=== PATIENT | male | born 1970 | race Caucasian/White ===

== ENCOUNTER 2017-01-27 19:29 | Emergency (ER) | payer OTHER ==
[2017-01-27 19:49] VITALS: TEMP 97.7
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
[2017-01-27 20:32] VITALS: BP 103/73; PULSE 83; RESP 18; O2SAT 90
== END 2017-01-27 20:43 | disposition home or self-care (01) ==
LOC: EDUNIT#
DX: S00.81XA Abrasion of other part of head, initial encounter (principal); F10.99 Alcohol use, unspecified with unspecified alcohol-induced disorder; W18.39XA Other fall on same level, initial encounter

== ENCOUNTER 2017-05-26 19:19 | Inpatient (IN) | payer OTHER ==
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
[2017-05-26] MEDS ORDERED: HYDROmorphONE/DILAUDID 1 MG/ML INJ ONE (19:41)
[2017-05-26] MEDS ORDERED: HYDROmorphONE/DILAUDID 1 MG/ML INJ IVP ONE ×2 (19:55→20:54)
[2017-05-26 20:22] LABS: PLATELET COUNT 144 10^3/uL (150-400)
[2017-05-26 20:43] LABS: INR 0.99 (0.83-1.16); PROTIME(PATIENT) 13.3 SEC (12.0-15.0)
[2017-05-26] MEDS ORDERED: ACETAMINOPHEN 325 MG TAB PO PRN (22:19)
[2017-05-26] MEDS ORDERED: ONDANSETRON DISINTEGRATING 4 MG TAB PO PRN (22:19)
[2017-05-26] MEDS ORDERED: ONDANSETRON 4 MG/2 ML VIAL IVP PRN (22:19)
[2017-05-26] MEDS ORDERED: NS 1,000 ML IV SCH (22:30)
--- NOTE | 2017-05-26 22:30 | SOAPPROG ---
SOAP Progress Note Assessment/Plan: Assessment/Plan: Left femoral neck fracture, displaced -Cont NWB of LLE, pt will remain on bedrest until surgery tomorrow -Planned L hip hemiarthroplasty on 05/27/2017, pending medicine clearance for surgery -Cont current pain regimen as tolerated -Pt will be NPO after midnight for surgery on 05/27/2017 -Signed informed consent obtained 05/26/17 22:28 Subjective: Consult note dictated Objective: Vital Signs Temp Pulse Resp BP Pulse Ox 36.8 C 78 17 143/97 H 95 05/26/17 21:36 05/26/17 21:36 05/26/17 21:36 05/26/17 21:36 05/26/17 21:36 05/25/17 05/26/17 05/27/17 05:59 05:59 05:59 Intake Total 0 Balance 0 PT 13.3 SEC (12.0-15.0) 05/26/17 19:15 INR 0.99 (0.83-1.16) 05/26/17 19:15 Consult note dictated. Pt in room, NAD. ICD10 Worksheet Patient Problems: Problems Problem Status Onset Left displaced femoral neck fracture Acute
[2017-05-26] MEDS ORDERED: DEXAMETHASONE 4 MG/ML VIAL IVP ONE (22:31)
[2017-05-26] MEDS ORDERED: ceFAZolin 2 GM/SWFI 2 GM/20 ML SYR IVP ONE (22:31)
[2017-05-26] MEDS ORDERED: ACETAMINOPHEN 325 MG TAB PO ONE (22:31)
[2017-05-26] MEDS ORDERED: FAMOTIDINE 20 MG TAB PO ONE (22:31)
--- NOTE | 2017-05-26 22:44 | GHP ---
[f rep st] HISTORY AND PHYSICAL DATE OF ADMISSION: 05/26/2017 CHIEF COMPLAINT: Fall and hip pain. HISTORY OF PRESENT ILLNESS: A 47-year-old man with a history of a stroke, who presents with a fall. He was cooking in his kitchen, spun around, lost his balance landed on his left hip. He did not los e consciousness or hit his head. He had immediate pain in the left hip. He does have sensation and ability to move his left foot. PAST MEDICAL/SURGICAL HISTORY: 1. 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 2. Cardiomyopathy which he tells me is completely resolved. He is currently off all cardiac medicat ions. His EF was as low as 10%. 3. History of meningitis. MEDICATIONS: Please see medication reconciliation. ALLERGIES: No known drug allergies. SOCIAL HISTORY: He drinks about 6 beers a day. He tells me he has not had any withdrawal when he qu its drinking. He does not smoke. He lives with his mom and his sister. He walks without a walker. FAMILY HISTORY: Reviewed and noncontributory. REVIEW OF SYSTEMS: A 10-point review of systems is conducted and is negative except per HPI. PHYSICAL EXAM: VITAL SIGNS: Blood pressure 143/97, heart rate 78, respiration rate 17, saturating 9 5% on 2 L. Temperature is 36.8. GENERAL: The patient is a pleasant man, lying in bed who feels unc omfortable due to pain. HEENT: Shows him to be normocephalic, atraumatic. CARDIOVASCULAR: Regular rate and rhythm. No murmurs, rubs, or gallops. PULMONARY: Lungs clear to auscultation bilaterally . ABDOMEN: Soft, nontender, nondistended. SKIN: Shows no rash. : Shows no Rojo. NEUROLOGIC: Shows him to be alert and oriented x3. He has notable left-sided motor deficits. EXTREMITIES: Sh ows his left lower extremity to be externally rotated and foreshortened. His left foot is warm. He has motor and sensation intact in his left foot at his baseline. PSYCHIATRIC: Shows normal mood and affect. LABS: Hemoglobin is 18. INR 0.99. Creatinine is 1.0. Otherwise basic metabolic panel is relativel y unremarkable. DATA: 1. I discussed this with Dr. Rene. Will admit to med/surg. 2. Hip x-ray which I personally viewed and interpreted, shows femoral neck fracture. This is displa charbel. IMPRESSION/PLAN: 1. Left hip fracture: Dr. Mcginnis with orthopedics has been consulted. Given his history of cardiomyo chetan and stroke, I think it is appropriate to order an EKG, chest x-ray, and echocardiogram. These should be done interpreted prior to his surgery. On exam, he is euvolemic with a normal cardiac exam . These have been ordered and are pending at this time. 2. History of left-sided cerebrovascular accident: He is currently off all cardiac medications. Th is seems reasonable given the fact that this occurred when he had an extremely low ejection fraction and now he reports a normal ejection fraction. Will likely need additional help postoperatively karuna use of these deficits. 3. Venous thromboembolism risk: He will be high risk postoperative. Would recommend a prolonged co urse of Lovenox. /[id number]/MODL
[2017-05-26] MEDS: oxyCODONE IR 5 MG TAB PO PRN (22:57)
[2017-05-26] MEDS: TEMAZEPAM 15 MG CAP PO PRN (23:46)
[2017-05-27] MEDS: DIAZEPAM 5 MG TAB PO PRN ×2 (00:29→10:02)
[2017-05-27] MEDS: HYDROmorphONE/DILAUDID 1 MG/ML INJ IVP PRN ×4 (00:36→11:45)
--- NOTE | 2017-05-27 00:50 | CPEKG ---
Heart Rate: 71 RR Interval: 845 P-R Interval: 180 QRSD Interval: 94 QT Interval: 372 QTC Interval: 405 P [place]: 63 QRS [place]: 22 T Wave [place]: 73 EKG Severity - ABNORMAL ECG - EKG Impression: SINUS RHYTHM EKG Impression: NONSPECIFIC T ABNORMALITIES, ANTERIOR LEADS Electronically Signed By: Guadalupe Garcia 27-May-2017 18:04:34
[2017-05-27] MEDS: oxyCODONE IR 5 MG TAB PO PRN ×4 (02:12→15:14)
[2017-05-27] MEDS ORDERED: ceFAZolin 2 GM/SWFI 2 GM/20 ML SYR IVP ONE ×2 (05:15→16:30)
[2017-05-27 05:39] LABS: PLATELET COUNT 124 10^3/uL (150-400)
[2017-05-27] MEDS ORDERED: FAMOTIDINE 20 MG TAB PO ONE ×2 (06:00→16:30)
[2017-05-27] MEDS ORDERED: DEXAMETHASONE 4 MG/ML VIAL IVP ONE ×2 (06:00→16:30)
[2017-05-27] MEDS ORDERED: ACETAMINOPHEN 325 MG TAB PO ONE ×2 (06:00→16:30)
--- NOTE | 2017-05-27 06:51 | SOAPPROG ---
SOAP Progress Note Assessment/Plan: Assessment/Plan: Left femoral neck fracture, displaced -Cont NWB of LLE, pt will remain on bedrest until surgery tomorrow -Planned L hip hemiarthroplasty on 05/27/2017, pending medicine clearance for surgery -Cont current pain regimen as tolerated - Place fley today -Pt will be NPO after midnight for surgery on 05/27/2017 -Signed informed consent obtained - Ok for surgery pending medicine clearance 05/27/17 10:25 Subjective: Pt seen at bedside. No significant pain at rest, but continued pain with repositioning or movement of L hip. He states he is tolerating his diet and medications well. Denies any new onset n/t. We have reviewed surgical plan, he has no additional concerns or complaints at this time. Objective: Vital Signs Temp Pulse Resp BP Pulse Ox 36.9 C 87 15 151/97 H 95 05/27/17 04:55 05/27/17 04:55 05/27/17 04:55 05/27/17 04:55 05/27/17 04:55 Laboratory Results 05/27/17 05:08 05/27/17 05:08 05/26/17 05/27/17 05/28/17 05:59 05:59 05:59 Intake Total 328 Balance 328 PT 13.3 SEC (12.0-15.0) 05/26/17 19:15 INR 0.99 (0.83-1.16) 05/26/17 19:15 VSS, NAD, A&Ox3, pleasant and cooperative with exam. Exam of left hip is externally rotated and foreshortened. Thigh compartment is supple. Pt moves ankle, foot and toes well. Post calves NTTP, no palpable vascular cords, neg Edie's bilat. DNVI BLE. ICD10 Worksheet Patient Problems: Problems Problem Status Onset Left displaced femoral neck fracture Acute
--- NOTE | 2017-05-27 08:50 | GCON ---
[f rep st] CONSULTATION ORTHOPEDIC CONSULT CHIEF COMPLAINT: Left hip pain. HISTORY OF PRESENT ILLNESS: The patient is a pleasant 47-year-old male, who initially presented to [facility] emergency department with left hip pain as a result of a fall. He sta jonas that he was cooking in his kitchen, spun around and lost his balance, impacting his left hip. He notes no LOC or head, neck or back trauma. He notes that he had immediate pain in the left hip. He denies any new onset numbness or tingling in his left lower extremity, noting a full sensation of hi s legs and the inability to move his foot, ankle and toes with only mild discomfort related to his hi p. He denies any additional musculoskeletal pain at this time. Subsequent radiographs were reviewed in the emergency room revealing a displaced and impacted left femoral neck fracture. No dislocation of the femoral acetabular joint is noted. The patient was initially seen by Dr. Rene in the ED, and Orthopedics was consulted. At the time of exam, the patient notes his pain is under control with his current medications, and continues to deny any numbness and tingling into his left lower extremi ty. He does note that he is normally able to ambulate without the use of assistive devices. He does note a history of stroke, which has caused some left upper extremity contracture and paresthesias. He is not sure if he will be able to use a walker for ambulation purposes. He again denies any addit ional musculoskeletal pain, or any additional injuries associated with his fall, as well as any loss of consciousness, head, neck or back pain. He has no additional concerns or complaints at this time. PAST MEDICAL HISTORY: The patient reports a past medical history significant for a stroke 10 years a go with residual left-sided deficits. This may have been in the setting of possible viral cardiomyop athy. This is also significant for a history of a cardiomyopathy, which the patient reports has "res olved." The patient notes he is not currently taking medications for this issue, but his ejection fr action was possibly as low as 10%. The patient also has a history of meningitis. PAST SURGICAL HISTORY: The patient denies any significant past surgical history. MEDICATIONS: Please see medication reconciliation for complete list but this includes Percocet, Zolo ft, Neurontin and baclofen. ALLERGIES: The patient states no known drug allergies, as well as denies any allergies to metals. SOCIAL HISTORY: The patient reports a current alcohol consumption of approximately 6 alcoholic bever ages a day. The patient notes no withdrawal symptoms when he does not consume alcohol. The patient denies any current tobacco use. The patient lives at home with his mother and sister, and as above, ambulates without the use of assistive devices. FAMILY HISTORY: No significant contributory family history is reported today. REVIEW OF SYSTEMS: A 10-point review of systems was reviewed today with no additional concerns, comp laints or abnormal findings noted in the HPI or PMH. PHYSICAL EXAMINATION: VITAL SIGNS: BP 143/97, HR 78 BPM, respirations 17 per minute, O2 sats are 95 % on 2 L. Temperature is 36.8 degrees. GENERAL: Otherwise a healthy appearing male who is in mild distress, pleasant and cooperative with today's exam. HEENT: NC/AT, EOMI, PERRLA. Ears and nares a re patent without discharge. OP is clear. NECK: Supple, NTTP. CARDIOVASCULAR: RRR, no M/C/G/R. LUNGS: CTAB, no increased WOB noted. ABDOMEN: Soft, NT/ND. EXTREMITIES: Examination of the left upper extremity reveals limited ROM both actively and passively , as well as a contraction of the digits. The patient is able to passively extend his digits, withou t significant active movement. Right upper extremity exam is benign. Examination of the left lower extremity reveals the patient holding his left lower extremity externally rotated and foreshortened. ROM examination of the hip is deferred due to fracture. The patient moves ankle, foot and toes WNL. The dorsalis pedis and posterior tibialis pulses are intact and equal compared bilaterally. The pa tient has intact light touch sensation distally. No significant erythema, discharge or induration is noted. No ecchymosis. DNVI BUE. SKIN: Please see above dictation concerning left lower extremity . No additional rashes or lesions are noted. PSYCHIATRIC: Normal mood and affect, pleasant coopera tive with today's exam. NEUROLOGIC: A and O x3, appropriate mood and affect. Speech no reflow and fluent. RADIOGRAPHS: Three views of the left hip are reviewed today revealing an impacted displaced left fem oral neck fracture, with no femoral vestibular dislocation. No additional fractures or dislocation a re noted. No significant osteoarthritic changes are noted in the left femoral acetabular joint. ASSESSMENT: Left femoral neck fracture, displaced. PLAN: This patient's case and radiographs were reviewed with Dr. Mcginnis today, who also saw and examin ed the patient. After a lengthy discussion of treatment options, including surgical intervention, th e patient has elected to proceed with a left hip hemiarthroplasty, which will be performed on 018 as an inpatient procedure. The patient will be admitted to the hospital service. Risks and bene fits of the procedure, as well as a recuperative timeline were discussed with the patient today, and signed informed consent was obtained. We will continue to manage this patient's pain with the curren t pain regimen. The patient will be n.p.o. after midnight, with anticipated surgery on the afternoon of 05/27/2017. The patient will likely be weightbearing as tolerated following his procedure, and w ill need postoperative anticoagulation, likely for 4 weeks postoperatively. All the patient's questi ons have been answered today, and his concerns addressed. He has relayed his understanding of the rrent care plan and education presented today, appears pleased with the care he received today. He h as been my pleasure to assist in the care of this patient. /[id number]/MODL
[2017-05-27] MEDS: SERTRALINE HCL 100 MG TAB PO SCH (10:02)
[2017-05-27] MEDS: GABAPENTIN 300 MG CAP PO SCH ×2 (10:02→22:02)
[2017-05-27] MEDS: BACLOFEN 20 MG TAB PO SCH ×3 (10:02→22:01)
--- NOTE | 2017-05-27 10:14 | HOSPPROG ---
Hospitalist Progress Note Assessment/Plan: Patient is a 47 y/o male who fell landing on his hip. Today is my 1st encounter with the patient. Chart reviewed. *Left hip fx or today * history of a stroke which had has left him with left-sided deficits -he gets great support from his mom and sister * chronic pain on continuous opioids -he is very concerned about postop pain will evaluate his medications * history of cardiomyopathy -reviewed his echocardiogram prior to surgery and he has a stable EF * alcohol use -drinks approximately 6 beers daily has no history of withdrawals when he quits drinking * DVT prophylaxis -will need low-molecular weight heparin initiated Subjective: Patient is complaining of left hip pain the gets good relief with the Dilaudid Objective: Vital Signs Temp Pulse Resp BP Pulse Ox 36.7 C 70 16 143/102 H 93 05/27/17 07:36 05/27/17 07:36 05/27/17 07:36 05/27/17 07:36 05/27/17 07:36 Laboratory Results 05/27/17 05:08 05/27/17 05:08 05/26/17 05/27/17 05/28/17 05:59 05:59 05:59 Intake Total 328 0 Output Total 250 Balance 328 -250 PT 13.3 SEC (12.0-15.0) 05/26/17 19:15 INR 0.99 (0.83-1.16) 05/26/17 19:15 - Physical Exam Constitutional: no apparent distress, No not in pain Eyes: PERRL Ears, Nose, Mouth, Throat: hearing normal Cardiovascular: regular rate and rhythym, no murmur, rub, or gallop Respiratory: no respiratory distress Gastrointestinal: normoactive bowel sounds Skin: warm Musculoskeletal: other (Left leg shortened compared to the right leg) Neurologic: AAOx3, weakness Psychiatric: interacting appropriately ICD10 Worksheet Patient Problems: Problems Problem Status Onset Left displaced femoral neck fracture Acute
--- NOTE | 2017-05-27 13:54 | ECHO ---
[email or web address] [address] [address] Main: [phone] Fax: Transthoracic Echocardiogram Name: JUANA CONCEPCION MR#: [id number] Study Date: 05/27/2017 Study Time: 08:37 AM Date of : 1970 Age: 47 year(s) Height: 172.7 cm (68 in.) Weight: 74.84 kg (165 lb.) BSA: 1.88 m2 Gender: Male Examination: Echo Indication: Pre Op Hip Surgery Image Quality: Contrast: Requested by: Atilio Jiang BP: 143 mmHg/102 mmHg Heart Rate: Rhythm: Normal sinus rhythm Indication: Pre Op Hip Surgery Procedure Staff Quality Assurance Coach: Harinder Weldon Reading Physician: Guadalupe Garcia Requesting Provider: Conclusions: Normal size left ventricle. No LV hypertrophy. Normal global systolic LV function. EF is 74 %. No regional wall motion abnormality. Normal size right ventricle. Normal RV function. No significant valvular disease. No prior echo Measurements: Chambers Valvular Assessment AV/MV Valvular Assessment TV/PV Normal Normal Normal Name Value Range Name Value Range Name Value Range Ao Michelle (MM): 2.9 cm (2.2 cm-3.7 MV E Vmax: 0.78 m/s ( - ) PV Vmax: 0.79 m/s (0.6 m/s-0.9 cm) MV A Vmax: 0.64 m/s ( - ) m/s) IVSd (2D): 1.0 cm (0.6 cm-1.1 MV E/A: 1.22 ( - ) PV PGmax: 2 mmHg ( - ) cm) LVDd (2D): 4.6 cm (4.2 cm-5.9 cm) LVDs (2D): 2.6 cm (2.1 cm-4 cm) LVPWd (2D): 1.1 cm (0.6 cm-1 cm) LVEF (2D): 74 (>=54 %) Continued Measurements: Chambers Valvular Assessment AV/MV Name Value Name Value LADs Lon.7 cm MV E' Septal: 0.07 m/s Patient: JUANA CONCEPCION Study Date: 05/27/2017 Page 1 of 2 08:37 AM LA Area: 21.3 cm2 MV E/E' Septal: 11.20 MV E/E' Lateral: 12.40 Findings: Left Ventricle: Normal size left ventricle. No LV hypertrophy. Normal global systolic LV function. EF is 74 %. No regional wall motion abnormality. Normal diastolic LV function. Right Ventricle: Normal size right ventricle. Normal RV function. Left Atrium: The left atrium is normal in size. Right Atrium: The right atrium is normal in size. Mitral Valve: The mitral valve is normal in appearance and function. Aortic Valve: The aortic valve is normal in appearance and function. Tricuspid Valve: The tricuspid valve is normal in appearance and function. Pulmonic Valve: The pulmonic valve is normal in appearance and function. Aorta: The aorta is normal. Pericardium: No pericardial effusion. Exam Comments: Poor Subcostal Views . (No Signature Object) Patient: JUANA CONCEPCION Study Date: 05/27/2017 Page 2 of 2 08:37 AM D:_[id number]
[2017-05-27] MEDS ORDERED: BUPIVACAINE/EPI 0.5% 30 ML SDV ONE (15:29)
--- NOTE | 2017-05-27 15:54 | ASMTCMCOM ---
CM Note CM Note Notes: Pt admitted with L femoral fx. Surgery today. PT/OT will eval after surgery. Pt fell, has a hx of CVA, and drinks 6 beers a day. CM will follow for any d/c needs. Date Signed: 05/27/2017 03:53 PM Electronically Signed By:KATERYNA Ahuja
[2017-05-27] MEDS ORDERED: LR 1,000 ML IV ONE (16:13)
[2017-05-27] MEDS ORDERED: LIDOCAINE 1% 2 ML INJ ID PRN (16:13)
[2017-05-27] MEDS ORDERED: ceFAZolin 2 GM/SWFI 20 ML SYR IVP ONE (16:14)
[2017-05-27] MEDS ORDERED: MIDAZOLAM 2 MG/2 ML VIAL ONE (17:08)
[2017-05-27] MEDS ORDERED: MIDAZOLAM 2 MG/2 ML VIAL IVP ONE (17:09)
--- NOTE | 2017-05-27 17:11 | PDANEPAE ---
ANE Past Medical History - Pulmonary History Hx Oxygen in Use at Home: No Hx Sleep Apnea: No Sleep Apnea Screening Result - Last Documented: Negative - Endocrine History Hx Diabetes: No - Chronic Pain History Chronic Pain: Yes ANE Review of Systems Review of Systems: ANE Patient History - Allergies Allergies/Adverse Reactions: No Known Allergies Allergy (Unverified 06/10/13 13:37) - Home Medications Home Medications: Baclofen [Baclofen 20 mg (*)] 20 mg PO TID 05/26/17 [Last Taken 05/26/17] Gabapentin [Neurontin 300 MG (*)] 300 mg PO BID 05/26/17 [Last Taken 05/26/17] Sertraline HCl [Zoloft 100mg (*)] 150 mg PO DAILY 05/26/17 [Last Taken 05/26/17] oxyCODONE/APAP 5/325 [Percocet 5/325 (*)] 2 tab PO TID PRN 05/26/17 [Last Taken 05/26/17 AM] - NPO status NPO Since - Liquids (Date): 05/26/17 NPO Since - Liquids (Time): 23:59 NPO Since - Solids (Date): 05/26/17 NPO Since - Solids (Time): 23:30 - Smoking Hx Smoking Status: Never smoked SUSAN Labs/Vital Signs - Labs Result Diagrams: 05/27/17 05:08 05/27/17 05:08 - Vital Signs Blood Pressure: 145/100 Heart Rate: 82 Respiratory Rate: 16 O2 Sat (%): 92 Height: 172.72 cm Weight: 74.843 kg SUSAN Physical Exam - Airway Neck exam: FROM Mallampati Score: Class 2 Mouth exam: poor dentition - Pulmonary Pulmonary: no respiratory distress - Cardiovascular Cardiovascular: regular rate and rhythym - ASA Status ASA Status: III ANE Anesthesia Plan Anesthesia Plan: general endotracheal anesthesia
[2017-05-27] MEDS ORDERED: fentaNYL 250 MCG/5 ML INJ ONE (17:39)
[2017-05-27] MEDS ORDERED: PROPOFOL 200 MG/20 ML VIAL ONE (17:39)
[2017-05-27] MEDS ORDERED: ONDANSETRON 4 MG/2 ML VIAL IVP PRN (19:31)
[2017-05-27] MEDS ORDERED: fentaNYL 100 MCG/2 ML INJ IVP PRN (19:31)
[2017-05-27] MEDS ORDERED: NALOXONE HCL 0.4 MG/ML INJ IVP PRN (19:31)
[2017-05-27] MEDS ORDERED: METOCLOPRAMIDE 10 MG/2 ML VIAL IVP PRN (19:31)
[2017-05-27] MEDS ORDERED: ALBUTEROL 3 ML DEYVIAL IH PRN (19:31)
[2017-05-27] MEDS ORDERED: MEPERIDINE 25 MG/ML SYR IVP PRN (19:31)
--- NOTE | 2017-05-27 19:33 | POSTANESTH ---
Post Anesthetic Evaluation Cardiovascular Status: Similar to Pre-Op Cond Respiratory Status: Similar to Pre-op Cond. Level of Consciousness/Mental Status: Can Participate in Eval Pain Control: Adequate, Prn Tx Ordered Nausea/Vomiting Control: Adequate, Prn Tx Ordered Complications Possibly Related to Anesthesia: None Noted
--- NOTE | 2017-05-27 19:45 | POSTOPPROG ---
Post Op Note Date of Operation: 05/27/17 Surgeon: Jose Alfredo Mcginnis Sustainability Manager: Lima Dennis PA-C Anesthesia: GET(General Endotracheal) Pre-op Diagnosis: Left hip displaced femoral neck fracture Post-op Diagnosis: Left hip displaced femoral neck fracture: s/p hemiarthroplasty Indication: displaced left femoral neck fracture Procedure: Left hip hemiarthroplasty Findings: see dictated operative note Inf/Abcess present in the surg proc area at time of surgery?: No EBL: 100-500 (250cc) Complications: none Specimen(s): none
[2017-05-27] MEDS ORDERED: ceFAZolin 2 GM/DEXTROSE 100 ML IV SCH (22:00)
[2017-05-28] MEDS: ceFAZolin 2 GM/SWFI 2 GM/20 ML SYR IVP SCH ×2 (01:09→09:41)
--- NOTE | 2017-05-28 04:55 | GOP ---
[f rep st] OPERATIVE REPORT DATE OF OPERATION: 05/27/2017 SURGEON: Jose Alfredo Mcginnis MD ROAD FREIGHT CONDUCTOR: Lima Dennis PA-C PREOPERATIVE DIAGNOSIS: Left basicervical femoral neck fracture. POSTOPERATIVE DIAGNOSIS: Left basicervical femoral neck fracture. PROCEDURE PERFORMED: Left hip hemiarthroplasty. FINDINGS: I used a [place]i Accolade II size 427-degree press-fit femoral stem, with a 48 mm bipolar head, with a 26 mm central head, without any additional offset. INDICATIONS: The patient is a disabled 46-year-old gentleman secondary to a stroke, which has caused an incomplete hemiparesis of the left side. He inadvertently slipped and fell on the ice, sustaining the above injury. He was admitted to the hospital overnight and brought the next day to the operating room for definitive fracture management. DESCRIPTION OF PROCEDURE: After routinely checking the patient's identification and consent, and the successful induction of LMA general endotracheal anesthetic, the patient was positioned in the left side up side- lying position. Padded hip rests were placed anteriorly and posteriorly. A Rojo catheter was placed to continuous bag drainage, and the patient received 2 g of intravenous Ancef. The patient's left hip was now prepped and draped in usual standard fashion. A surgical time-out was completed. A longitudinal incision centered over the greater trochanter in the mid axial line of the hip was carried sharply through the skin and bluntly through the subcutaneous layer. We used a hot knife to dissect further down to the level of the IT band. The IT band was incised in a manner parallel to its fibers. A Charnley self-retaining retractor was placed. I slightly internally rotated the hip and then took down the short external rotators from the greater trochanter. I tagged the piriformis tendon for subsequent repair. I then used a Jackson elevator to elevate the soft tissues from the capsule, and then made a T-shaped capsulotomy in the capsule, exposing the femoral head. We externally rotated the hip, placed a skid in the acetabulum, and then internally rotated, thereby dislocating the head. I the head and then incised the ligamentum teres. The head measured 48 mm. We placed a 48 mm trial head within the acetabulum and felt it had excellent fit. At this point, I used a box osteotome to gain access to the proximal femoral canal, and then used a seasoner hand and then a series of broaches, until a size 4 broach fit quite tightly. I made a significant effort to lateralize the broach and ensure that the anteversion was identical to the [place] anteversion of his hip, which was easily recognizable with the remaining neck. I reduced the hip with the trial components, and felt that the leg lengths were symmetrical and the hip was quite stable. In fact, at 90 degrees of hip flexion it did not lift out until greater than 60 degrees of internal rotation. Satisfied with these components, the hip was re-dislocated. The trial components were removed, including the broach. I irrigated the canal and then placed the for real implant and malleted it into position. I placed a 26 mm head on the stem and then the 48 mm bipolar head, and reduced the hip. Excellent stability was noted, which was identical to the trial. The leg lengths were symmetrical as well. Once this was completed, I irrigated the capsule and then closed the capsule, which had been previously tagged with 2-0 FiberWire suture. I then reattached the piriformis tendon into the greater trochanter, which I was able to sew directly through with a needle. I irrigated the greater trochanter area and then closed the IT band with multiple interrupted sutures of #1 PDS buried knot figure-of- eight sutures. The subcutaneous layer was closed with 2-0 Vicryl, and the skin was closed with surgical meliton. A sterile bulky dressing was applied. 0.25% Marcaine plus epinephrine was infiltrated around the wound for postoperative comfort and assistance in hemostasis. The patient was rolled back into a supine position, where an abduction pillow was placed between his legs. He was reversed from his anesthetic and extubated in the operating room and transferred to the recovery area in excellent condition. He tolerated the procedure well. There were no complications. REASON FOR PAINTING INSTRUCTOR: A assistant in nursing was medically necessary and required to complete this case. The hospital aides and assistants teacher was used to decrease surgical time and also to assist in positioning the leg in 3-dimensional space during the dislocation of the hip, preparation of the femoral canal, and then the multiple relocations and dislocations during implant placement. /[id number]/MODL MTDD
[2017-05-28 05:37] LABS: PLATELET COUNT 115 10^3/uL (150-400)
[2017-05-28] MEDS: oxyCODONE IR 5 MG TAB PO PRN ×5 (06:42→22:53)
--- NOTE | 2017-05-28 08:35 | PDMN ---
Medical Necessity Medical necessity: S600 hip displaced fx of femoral neck- hemiarthroplasty 3 days
--- NOTE | 2017-05-28 09:02 | SOAPPROG ---
SOAP Progress Note Assessment/Plan: Assessment/Plan: L femoral neck fracture s/p L hemiarthroplasty POD#1 - Continue pain management, encourage PO - Posterior hip precautions with abduction pillow - SCDs/TEDs for mechanical prophylaxis - Lovenox 40mg daily for VTE chemoprophylaxis - Continue PT/OT - WBAT LLE - Finish post-operative course of IV antibiotics - Discharge pending PT approval and pain management 05/28/17 08:58 05/28/17 09:03 Subjective: Pt states his pain is manageable, he has not been OOB yet. Pt denies any fever , chills, chest pain, SOB, abdominal pain, N/V/D, numbness, tingling and calf pain. Objective: Vital Signs Temp Pulse Resp BP Pulse Ox 37.3 C 83 16 109/80 92 05/28/17 08:00 05/28/17 08:00 05/28/17 08:00 05/28/17 08:00 05/28/17 08:00 Laboratory Results 05/28/17 05:30 05/28/17 05:30 05/27/17 05/28/17 05/29/17 05:59 05:59 05:59 Intake Total 328 1380 Output Total 2400 650 Balance 328 -1020 -650 PT 13.3 SEC (12.0-15.0) 05/26/17 19:15 INR 0.99 (0.83-1.16) 05/26/17 19:15 Physical Exam - Physical Exam General Appearance: alert, no apparent distress Cardiac/Chest: normal peripheral pulses Skin: normal color, warm/dry, other (incision site c/d/i) Extremities: normal inspection, normal capillary refill, swelling (localized to L hip), No pedal edema, No calf tenderness, No Edie's sign Neuro/Psych: alert, normal mood/affect, motor weakness (at baseline has weakness in the LLE, able to move toes and ankle well), No sensory deficit ICD10 Worksheet Patient Problems: Problems Problem Status Onset Left displaced femoral neck fracture Acute
[2017-05-28] MEDS: SERTRALINE HCL 100 MG TAB PO SCH (09:41)
[2017-05-28] MEDS: BACLOFEN 20 MG TAB PO SCH ×3 (09:42→22:53)
[2017-05-28] MEDS: ENOXAPARIN 40 MG/0.4 ML SYR SC SCH (09:44)
[2017-05-28] MEDS: GABAPENTIN 300 MG CAP PO SCH ×2 (09:45→20:01)
--- NOTE | 2017-05-28 10:55 | HOSPPROG ---
Hospitalist Progress Note Assessment/Plan: Patient is a 47 y/o male who fell landing on his hip. *Left femoral neck fracture fx -status post left roderick after plasty -weightbearing as tolerated * history of a stroke which had has left him with left-sided deficits -he gets great support from his mom and sister * chronic pain on continuous opioids -pain has been well managed * history of cardiomyopathy -reviewed his echocardiogram prior to surgery and he has a stable EF * alcohol use -drinks approximately 6 beers daily has no history of withdrawals when he quits drinking * DVT prophylaxis -low-molecular weight heparin * plan. Have asked inpatient rehab to evaluate him with his history of a stroke and also a recent hip fracture. Subjective: Parker is feeling well today. Pain is well managed Objective: Vital Signs Temp Pulse Resp BP Pulse Ox 37.3 C 83 16 109/80 92 05/28/17 08:00 05/28/17 08:00 05/28/17 08:00 05/28/17 08:00 05/28/17 08:00 Laboratory Results 05/28/17 05:30 05/28/17 05:30 05/27/17 05/28/17 05/29/17 05:59 05:59 05:59 Intake Total 328 1380 Output Total 2400 650 Balance 328 -1020 -650 PT 13.3 SEC (12.0-15.0) 05/26/17 19:15 INR 0.99 (0.83-1.16) 05/26/17 19:15 - Physical Exam Constitutional: no apparent distress, appears nourished, not in pain Eyes: PERRL Ears, Nose, Mouth, Throat: hearing normal Cardiovascular: regular rate and rhythym Respiratory: no respiratory distress Skin: warm Musculoskeletal: generalized weakness Neurologic: AAOx3 Psychiatric: interacting appropriately ICD10 Worksheet Patient Problems: Problems Problem Status Onset Left displaced femoral neck fracture Acute
[2017-05-28] MEDS ORDERED: FLU VACC QS 2017-18 (3YR+)/PF 0.5 ML SYR (FLUARIX QUAD) IM ONE (11:56)
[2017-05-28] MEDS: DIAZEPAM 5 MG TAB PO PRN ×2 (13:06→20:01)
[2017-05-29] MEDS: DIAZEPAM 5 MG TAB PO PRN ×2 (03:05→09:35)
[2017-05-29] MEDS: oxyCODONE IR 5 MG TAB PO PRN ×7 (03:05→21:32)
--- NOTE | 2017-05-29 07:43 | SOAPPROG ---
SOAP Progress Note Assessment/Plan: Assessment/Plan: Left femoral neck fracture s/p Left hemiarthroplasty POD#2 - Continue pain management, encourage PO - Posterior hip precautions with abduction pillow - SCDs/TEDs for mechanical prophylaxis - Lovenox 40mg daily for VTE chemoprophylaxis - Continue PT/OT - WBAT LLE - Discharge pending PT approval and pain management Subjective: Pt is post op day #2 from a left hip hemiarthroplasty. He states his hip is painful but the pain is controlled with medicine. He was up and walked with physical therapy yesterday. Pt denies any fever, chills, chest pain, SOB, abdominal pain, N/V/D, numbness, tingling and calf pain. Objective: Vital Signs Temp Pulse Resp BP Pulse Ox 36.8 C 103 H 16 122/97 H 90 L 05/28/17 22:07 05/28/17 22:07 05/28/17 22:07 05/28/17 22:07 05/28/17 22:07 Laboratory Results 05/28/17 05:30 05/28/17 05:30 05/28/17 05/29/17 05/30/17 05:59 05:59 05:59 Intake Total 1380 1650 Output Total 2400 2500 Balance -1020 -850 PT 13.3 SEC (12.0-15.0) 05/26/17 19:15 INR 0.99 (0.83-1.16) 05/26/17 19:15 Physical exam of the Left lower extremity: Dressings were changed today, new dry dressing applied. Incision is healing well, no erythema, no active drainage. Normal sensation to light touch in the LLE. Normal capillary refill, swelling localized to Left hip, No pedal edema, No calf tenderness, No Edie's sign ICD10 Worksheet Patient Problems: Problems Problem Status Onset Left displaced femoral neck fracture Acute
[2017-05-29] MEDS: BACLOFEN 20 MG TAB PO SCH ×3 (09:37→21:17)
[2017-05-29] MEDS: SERTRALINE HCL 100 MG TAB PO SCH (09:37)
[2017-05-29] MEDS: GABAPENTIN 300 MG CAP PO SCH ×2 (09:37→21:17)
[2017-05-29] MEDS: ENOXAPARIN 40 MG/0.4 ML SYR SC SCH (09:38)
[2017-05-29] MEDS ORDERED: oxyCODONE IR 5 MG TAB ONE (12:30)
--- NOTE | 2017-05-29 13:52 | HOSPPROG ---
Hospitalist Progress Note Assessment/Plan: Patient is a 47 y/o male who fell landing on his hip. First encounter, chart reviewed. D/W CM. *Left femoral neck fracture fx -status post left roderick after plasty -weightbearing as tolerated -cont PT/OT -needs rehab * history of a stroke which has left him with left-sided deficits -he gets great support from his mom and sister * chronic pain on continuous opioids -pain increased today -was only on baseline oxy -added robaxin and increased oxy to 10-15 * history of cardiomyopathy -reviewed his echocardiogram he has a stable EF * alcohol use -drinks approximately 6 beers daily has no history of withdrawals when he quits drinking * DVT prophylaxis -low-molecular weight heparin * plan. inpatient rehab to evaluate him with his history of a stroke and also a recent hip fracture. will need SNF if inpt denies. Subjective: C/O pain in leg and muscles. Didn't sleep well. Objective: Vital Signs Temp Pulse Resp BP Pulse Ox 37.4 C 88 16 133/84 H 92 05/29/17 08:00 05/29/17 08:00 05/29/17 08:00 05/29/17 08:00 05/29/17 08:00 Laboratory Results 05/28/17 05:30 05/28/17 05:30 05/28/17 05/29/17 05/30/17 05:59 05:59 05:59 Intake Total 1380 1650 Output Total 2400 2500 375 Balance -1020 -850 -375 PT 13.3 SEC (12.0-15.0) 05/26/17 19:15 INR 0.99 (0.83-1.16) 05/26/17 19:15 - Physical Exam Constitutional: appears nourished, chronically ill appearing, uncomfortable Eyes: PERRL, anicteric sclera, EOMI Ears, Nose, Mouth, Throat: moist mucous membranes, hearing normal, ears appear normal Cardiovascular: regular rate and rhythym, No JVD, No tachycardia Respiratory: no respiratory distress, reduced air movement, expiratory wheeze Gastrointestinal: normoactive bowel sounds, No tenderness, No ascites Skin: warm, normal color, No erythema Musculoskeletal: joint tenderness, muscular tenderness, generalized weakness, No normal joint ROM Neurologic: AAOx3 Psychiatric: interacting appropriately, not anxious, not encephalopathic, thought process linear ICD10 Worksheet Patient Problems: Problems Problem Status Onset Left displaced femoral neck fracture Acute
[2017-05-29] MEDS: METHOCARBAMOL 500 MG TAB PO SCH ×2 (15:34→21:16)
--- NOTE | 2017-05-29 16:33 | ASMTCMCOM ---
CM Note CM Note Notes: PT/OT rec inpatient rehab, [facility] inpatient rehab is still assessing. One challenge with inpatient rehabilitation is [facility] needing to authorize this level of care. This CM explained this to pt and he is agreeable to [facility] if inpatient rehab is not approved or he does not qualify. Referral sent to [facility] in [employer]. Date Signed: 05/29/2017 04:32 PM Electronically Signed By:KATERYNA De Guzman
[2017-05-30] MEDS: oxyCODONE IR 5 MG TAB PO PRN ×7 (00:33→21:34)
[2017-05-30] MEDS: DIAZEPAM 5 MG TAB PO PRN (00:37)
[2017-05-30] MEDS: GABAPENTIN 300 MG CAP PO SCH ×2 (08:38→21:36)
[2017-05-30] MEDS: SERTRALINE HCL 100 MG TAB PO SCH (08:38)
[2017-05-30] MEDS: ENOXAPARIN 40 MG/0.4 ML SYR SC SCH (08:39)
[2017-05-30] MEDS: BACLOFEN 20 MG TAB PO SCH ×3 (08:39→21:35)
[2017-05-30] MEDS: METHOCARBAMOL 500 MG TAB PO SCH ×3 (08:39→21:35)
--- NOTE | 2017-05-30 09:12 | SOAPPROG ---
SOAP Progress Note Assessment/Plan: Assessment/Plan: Left femoral neck fracture s/p Left hemiarthroplasty POD#3: patient overall doing well, pain well controlled, passing flatus. - WBAT in LLE, continue use of hip abduction pillow when not ambulating. Use hip precautions. - Continue pain management, encourage PO medications prn pain. - Posterior hip precautions with abduction pillow - SCDs/TEDs for mechanical prophylaxis - Lovenox 40mg daily for VTE chemoprophylaxis - Continue PT/OT - WBAT LLE - Continue dry dressings. Notify our office at [phone] if abnormal bleeding /oozing, change in heat/color around wound sites or of extremity. - Ok to D/C once stable pending PT/OT eval, hospitalists and pain management: likely will go to acute rehab pending insurance approval; being followed by case management. Patient/plan agreed with Dr. Mcginnis. 05/30/17 09:19 Subjective: s/p LEFT hip hemiarthroplasty POD #3 Patient overall doing well, sitting up in room alone, able to respond appropriately to questions. Has passed flatus, no BM yet. Pain well controlled. States has been attempting to ambulate with PT. Has a h/o left sided weakness due to CVA, but states weakness is unchanged from prior to surgery. Denies any worsening numbness/tingling, fever, chills, chest pain, cough, congestion, SOB, dyspnea, abdominal pain, N/V/D, claudication, change in strength, change in heat /color of extremity or around wound site. Objective: Vital Signs Temp Pulse Resp BP Pulse Ox 37.2 C 84 16 114/81 H 93 05/30/17 08:00 05/30/17 08:00 05/30/17 08:00 05/30/17 08:00 05/30/17 08:00 Laboratory Results 05/28/17 05:30 05/28/17 05:30 05/29/17 05/30/17 05/31/17 05:59 05:59 05:59 Intake Total 1650 400 Output Total 2500 925 Balance -850 -525 PT 13.3 SEC (12.0-15.0) 05/26/17 19:15 INR 0.99 (0.83-1.16) 05/26/17 19:15 - Pending Discharge Pending Discharge Within 48 Hours: Yes Pending Discharge Date: 06/01/17 (Per CM, PT/OT, Hospitalists.) Pending Discharge Time: 11:00 Physical Exam - Physical Exam General Appearance: alert, no apparent distress EENT: PERRL/EOMI Neck: non-tender, full range of motion Respiratory: lungs clear Cardiac/Chest: regular rate, rhythm Peripheral Pulses: 1+: dorsalis-pedis (R), dorsalis-pedis (L) Abdomen: non-tender, soft Skin: normal color, warm/dry Extremities: other (Left hip wound site clear without abnormal bleeding/oozing, change in heat/color around wound site or of extremity. NVI with 3+/5 strength on left side, compared to 5/5 on right (patient does have a h/o CVA which has left him weaker on his left side in upper/lower extremity). Brisk cap refill b/ l with calves soft/supple and NTTP b/l. SCDs in place b/l and on. ABduction pillow in place. No fluctuance noted on wound site. Limited AROM due to pain to patient, patient's left arm held in constant 90 degree angle (from h/o CVA). Gross sensation intact b/l with no focal deficits in upper/lower extremities.) Neuro/Psych: alert, normal mood/affect, motor weakness ICD10 Worksheet Patient Problems: Problems Problem Status Onset Left displaced femoral neck fracture Acute
--- NOTE | 2017-05-30 10:01 | ASMTCMCOM ---
CM Note CM Note Notes: Request for Inpatient acute rehab authorization has been sent to [facility] this morning. [facility] accepts pt pending [facility] bed availability if inpatient rehab is denied by [facility]. Date Signed: 05/30/2017 10:01 AM Electronically Signed By:KATERYNA De Guzman
[2017-05-30] MEDS ORDERED: LACTULOSE 20 GM/30 ML UDCUP PO PRN (12:19)
[2017-05-30] MEDS ORDERED: POLYETHYLENE GLYCOL 3350 17 GM PKT PO PRN (12:19)
[2017-05-30] MEDS ORDERED: BISACODYL 10 MG SUPP PR PRN (12:19)
[2017-05-30] MEDS ORDERED: MAGNESIUM HYDROXIDE 30 ML UDCUP PO PRN (12:19)
--- NOTE | 2017-05-30 13:02 | HOSPPROG ---
Hospitalist Progress Note Assessment/Plan: Patient is a 47 y/o male who fell landing on his hip. D/W CM. *Left femoral neck fracture - s/p Left hemiarthroplasty POD#3: - patient doing well, pain well controlled, passing flatus. - WBAT in LLE, continue use of hip abduction pillow - Continue pain management, - SCDs/TEDs for mechanical prophylaxis - Lovenox 40mg daily for VTE chemoprophylaxis - Continue PT/OT -needs rehab * history of a stroke which has left him with left-sided deficits -he gets great support from his mom and sister * chronic pain on continuous opioids -pain controlled -was only on baseline oxy -added robaxin and increased oxy to 10-15 -would not increase oxy any further * history of cardiomyopathy -reviewed his echocardiogram he has a stable EF * alcohol use -drinks approximately 6 beers daily has no history of withdrawals when he quits drinking * DVT prophylaxis -low-molecular weight heparin * plan. inpatient rehab to evaluate him with his history of a stroke and also a recent hip fracture. will need SNF if inpt denies. Subjective: Sleeping. Feeling well. Pain stable. Objective: Vital Signs Temp Pulse Resp BP Pulse Ox 37.2 C 84 16 114/81 H 93 05/30/17 08:00 05/30/17 08:00 05/30/17 08:00 05/30/17 08:00 05/30/17 08:00 Laboratory Results 05/28/17 05:30 05/28/17 05:30 05/29/17 05/30/17 05/31/17 05:59 05:59 05:59 Intake Total 1650 400 Output Total 2500 925 Balance -850 -525 PT 13.3 SEC (12.0-15.0) 05/26/17 19:15 INR 0.99 (0.83-1.16) 05/26/17 19:15 - Physical Exam Constitutional: appears nourished, chronically ill appearing Eyes: PERRL, anicteric sclera Ears, Nose, Mouth, Throat: moist mucous membranes, hearing normal Cardiovascular: No JVD, No edema Respiratory: no respiratory distress, reduced air movement Gastrointestinal: No tenderness, No ascites Skin: warm, normal color Musculoskeletal: pain with ROM, generalized weakness, No normal joint ROM Neurologic: AAOx3, weakness Psychiatric: interacting appropriately, not anxious, poor insight, poor judgement ICD10 Worksheet Patient Problems: Problems Problem Status Onset Left displaced femoral neck fracture Acute
[2017-05-30] MEDS: SENNOSIDES/DOCUSATE SODIUM TAB PO SCH (21:36)
[2017-05-30] MEDS: TEMAZEPAM 15 MG CAP PO PRN (22:14)
[2017-05-31] MEDS: oxyCODONE IR 5 MG TAB PO PRN ×4 (00:35→17:51)
[2017-05-31 08:20] VITALS: RESP 16; O2SAT 90
--- NOTE | 2017-05-31 10:13 | SOAPPROG ---
SOAP Progress Note Assessment/Plan: Assessment: Progressing well, Pain controlled. Plan: D/C to rehab when bed available. F/U plan discussed with patient (6 weeks). 05/31/17 10:1 Subjective: Got Medications all straitened out Objective: Vital Signs Temp Pulse Resp BP Pulse Ox 36.9 C 77 16 125/85 H 90 L 05/31/17 08:00 05/31/17 08:00 05/31/17 08:00 05/31/17 08:00 05/31/17 08:00 Laboratory Results 05/28/17 05:30 05/28/17 05:30 05/30/17 05/31/17 06/01/17 05:59 05:59 05:59 Intake Total 400 2600 Output Total 925 2450 475 Balance -525 150 -475 PT 13.3 SEC (12.0-15.0) 05/26/17 19:15 INR 0.99 (0.83-1.16) 05/26/17 19:15 AF VSS Wound CDI Calves NT CSM I B LE Good progress with PT ICD10 Worksheet Patient Problems: Problems Problem Status Onset Left displaced femoral neck fracture Acute
--- NOTE | 2017-05-31 11:47 | HOSPPROG ---
Hospitalist Progress Note Assessment/Plan: Patient is a 47 y/o male who fell landing on his hip. D/W CM. *Left femoral neck fracture - s/p Left hemiarthroplasty POD#3: - patient doing well, pain well controlled, passing flatus. 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 dc to [facility] today Subjective: Parker has no complaints x he didn't get much rest last night. Objective: Vital Signs Temp Pulse Resp BP Pulse Ox 36.9 C 77 16 125/85 H 90 L 05/31/17 08:00 05/31/17 08:00 05/31/17 08:00 05/31/17 08:00 05/31/17 08:00 Laboratory Results 05/28/17 05:30 05/28/17 05:30 05/30/17 05/31/17 06/01/17 05:59 05:59 05:59 Intake Total 400 2600 Output Total 925 2450 475 Balance -525 150 -475 PT 13.3 SEC (12.0-15.0) 05/26/17 19:15 INR 0.99 (0.83-1.16) 05/26/17 19:15 - Physical Exam Constitutional: no apparent distress, appears nourished, not in pain Ears, Nose, Mouth, Throat: hearing normal Respiratory: no respiratory distress Skin: warm Musculoskeletal: generalized weakness Neurologic: AAOx3 Psychiatric: interacting appropriately ICD10 Worksheet Patient Problems: Problems Problem Status Onset Left displaced femoral neck fracture Acute
--- NOTE | 2017-05-31 11:51 | PDIAF ---
- Diagnosis Diagnosis: left femoral neck fx s/p repair, hx of stroke w residual left side weaknes Code Status: Full Code - Medication Management Discharge Medications: Medications to Continue on Transfer Baclofen [Baclofen 20 mg (*)] 20 mg PO TID 05/26/17 [Last Taken 05/26/17] Gabapentin [Neurontin 300 MG (*)] 300 mg PO BID 05/26/17 [Last Taken 05/26/17] Sertraline HCl [Zoloft 100mg (*)] 150 mg PO DAILY 05/26/17 [Last Taken 05/26/17] Acetaminophen [Tylenol 325mg (*)] 650 mg PO Q4HRS PRN tab 05/31/17 [Last Taken Unknown] Diazepam [Valium 5 MG (*)] 5 mg PO Q6HRS PRN tab 05/31/17 [Last Taken Unknown] Enoxaparin [Lovenox 40 MG (*)] 40 mg SC DAILY #14 syr 05/31/17 [Last Taken Unknown] Methocarbamol [Robaxin 500 mg (*)] 1,000 mg PO TID tab 05/31/17 [Last Taken Unknown] Polyethylene Glycol 3350 [Miralax 17 gm (*)] 17 gm PO DAILY PRN pkt 05/31/17 [ Last Taken Unknown] Sennosides/Docusate Sodium [Senokot-S] 1 - 2 tab PO BID tab 05/31/17 [Last Taken Unknown] Temazepam [Restoril 15 MG (*)] 15 mg PO HS PRN cap 05/31/17 [Last Taken Unknown ] oxyCODONE IR [Oxycodone Ir (*)] 10 - 15 mg PO Q3HRS PRN tab 05/31/17 [Last Taken Unknown] Discharge Medications: Refer to the Discharge Home Medication list for PRN reason. - Orders Services needed: Physical Therapy, Occupational Therapy Diet Recommendation: no restrictions on diet Diet Texture: Regular Texture Diet Activity/Weight Bearing Restrictions: Orthopedics: Weight bearing as tolerated left lower extremity. Posterior hip precautions left hip: must wear abduction pillow while in bed at all times. DVT prophylaxis: Lovenox 40mg one injection subq every day for 28 days post op. Knee high KRISTOFER hoses for 14 days post op. Daily dry dressing changes to the left hip, pt will have meliton removed at SNF/ IP rehab. Physical therapy bi-weekly with home exercise program for approximately 6-8 weeks. Follow up with Dr. Mcginnis 6 weeks postoperatively. Please call our office with any questions or concerns Additional: cont lovenox for 28 days his percocet (home med) was dc due to changing pain medications during hospital stay/ recommending avoiding valium unless he is having severe spasms due to making him sedate. - Follow Up Care Current Providers and Referrals: Patient,NotPresent [Unknown] - As per Instructions Jose Alfredo Mcginnis MD [Medical Doctor] - (Pt will follow up in 10-14 days post op for staple removal if discharged to home. If patient is d/c to SNF/Inpatient rehab/C who can remove his meliton, he will follow up with Dr. Mcginnis 6 wks postoperatively.)
[2017-05-31] MEDS: GABAPENTIN 300 MG CAP PO SCH (11:58)
[2017-05-31] MEDS: BACLOFEN 20 MG TAB PO SCH ×2 (11:58→15:10)
[2017-05-31] MEDS: METHOCARBAMOL 500 MG TAB PO SCH ×2 (11:58→15:09)
[2017-05-31] MEDS: SENNOSIDES/DOCUSATE SODIUM TAB PO SCH (11:59)
[2017-05-31] MEDS: SERTRALINE HCL 100 MG TAB PO SCH (11:59)
[2017-05-31] MEDS: ENOXAPARIN 40 MG/0.4 ML SYR SC SCH (13:26)
--- NOTE | 2017-05-31 14:50 | ASMTCMCOM ---
CM Note CM Note Notes: Pt medically stable for d/c. The [place] ulises did not come in Friday for [facility] inpatient rehab. Pt was agreeable to d/c to [facility] today. has no [place] bed availability, there [place] bed availability at [facility]. This CM attempted to get [place] auth for 1 more [place] bed at [facility], spoke asif [place] at [place] [phone] and she will not auth or [facility], will auth [facility]. This CM presented the following options to pt: 1. [facility] 2. [facility] 3. Wait for Friday in order for [place] to auth [facility] inpatient rehab Pt chooses [facility]. Referral, orders and PASRR sent in [employer]. able to accept and set up wc van for 18:00. Date Signed: 05/31/2017 02:49 PM Electronically Signed By:KATERYNA De Guzman
[2017-05-31 16:04] VITALS: BP 120/83; PULSE 94; TEMP 98.1
--- NOTE | 2017-05-31 20:51 | GDS ---
[f rep st] DISCHARGE SUMMARY DISCHARGE DIAGNOSES: 1. Left femoral neck fracture. 2. History of stroke, with left-sided deficits. 3. Chronic pain, on continuous opiates. 4. History of cardiomyopathy. 5. Alcohol use. CONSULTATIONS: Dr. Mcginnis. HISTORY OF PRESENT ILLNESS: Briefly, the patient is a 47-year-old male with a history of stroke, with residual left-sided weakness, who presented with a fall. He was cooking in his kitchen, spun around, and landed on his left hip. He had immediate pain to his left hip area. It was found that he had a left hip fracture. He was seen and evaluated by Dr. Mcginnis. He had surgery and has done quite well with the surgery. HOSPITAL COURSE BY PROBLEM: 1. Left femoral neck fracture, status post left hemiarthroplasty. He is doing quite well. He will be weightbearing as tolerated and use his abduction pillow. He will go to [facility] for rehabilitation. 2. History of stroke. This has left him with left-sided weakness. He gets great support from his mom and sister. 3. Chronic pain, on continuous opioids. Robaxin was added, along with Valium and OxyIR. 4. History of cardiomyopathy. He had an echocardiogram performed on this admission, and he has a stable ejection fraction. 5. Alcohol use. No signs or symptoms of withdrawal. DISCHARGE CONDITION: Stable. Blood pressure is 125/85, heart rate is 77, respiratory rate is 16, O2 sats on 2 L are 90%, and temperature 36.9 Celsius. MEDICATIONS AT DISCHARGE: Please see the EMR. DISCHARGE INSTRUCTIONS: 1. To follow up with Dr. Mcginnis in the outpatient setting in 6 weeks. 2. Weightbearing as tolerated to left lower extremity and use the abduction pillow in bed at all times. 3. Lovenox for 28 days. 4. Knee-high KRISTOFER hoses. 5. Daily dressing changes. 6. If he develops fever, chills, chest pain, or shortness of breath, return to the ER. Greater than 30 minutes for discharging and coordinating his care. /[id number]/MODL MTDD
== END 2017-05-31 17:55 | DRG 470 ==
LOC: EDUNIT# → F3N 21:20
PROVIDERS: ADMIT Student in an Organized Health Care Education/Training Program; ATTEND Student in an Organized Health Care Education/Training Program
PROC: 0SRS01A Replacement of Left Hip Joint, Femoral Surface with Metal Synthetic Substitute, Uncemented, Open Approach (ICD-10-PCS; principal; 2017-05-26)
DX: S72.002A Fracture of unspecified part of neck of left femur, initial encounter for closed fracture (principal); W01.0XXA Fall on same level from slipping, tripping and stumbling without subsequent striking against object, initial encounter; Y92.000 Kitchen of unspecified non-institutional (private) residence as the place of occurrence of the external cause; Y93.G3 Activity, cooking and baking; I69.354 Hemiplegia and hemiparesis following cerebral infarction affecting left non-dominant side; Z72.89 Other problems related to lifestyle
CPT/HCPCS: 97110-GP; 97116-GP; 97162-GP; 97166-GO; 97535-GO; G0008; J0690; J1100; J1170; J1650; J2250; J2704; J3010

== ENCOUNTER 2018-09-07 15:07 | Emergency (ER) | payer OTHER ==
[2018-09-07 16:45] VITALS: BP 139/90
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
== END 2018-09-07 17:17 | disposition left against medical advice (07) ==
DX: R21 Rash and other nonspecific skin eruption (principal); S40.021A Contusion of right upper arm, initial encounter; R07.0 Pain in throat